=== PATIENT | female | born 1950 | race Caucasian/White ===

== ENCOUNTER → 2016-08-03 | Outpatient (CLI) | payer OTHER ==
[~2016-08-03] MED LIST: ALPR0.5T3 PO; ATOR80TA PO; BRIM0.1S OPL; CLOP1TAB5 PO; DOCU100C31 PO; FEXO1TAB49 PO; LATA0.5S OPL; LEVO75TA PO; LOSA50TA6 PO; NITR0.4S UT; NSNN50 NAE; POLY335019 PO; TRAZ1TAB16 PO; ZNTT/150 PO
--- NOTE | 2016-08-03 11:39 | DIAGNOSTIC IMAGING REPORT ---
CT SCAN OF THE PARANASAL SINUSES CLINICAL HISTORY: Chronic sinusitis. Headache. Facial pain. COMPARISON STUDY: CT of the brain dated 03/27/2014. TECHNIQUE: High-resolution CT scan of the paranasal sinuses is performed. Images are reviewed in the axial, sagittal, and coronal planes. IV contrast was not administered for this examination. The examination is performed utilizing the fusion protocol. CT DOSE: 584.55 mGy.cm FINDINGS: Maxillary antra: Clear bilaterally. Anterior ethmoid sinuses: Clear. Posterior ethmoid sinuses: Clear. Sphenoid sinuses: Clear. Frontal sinuses: There is trace mucosal thickening seen on the left. Clear in the right. Ostiomeatal complexes: Patent bilaterally. Frontoethmoidal and sphenoethmoidal recesses: Patent bilaterally. Carotid arteries: The carotid arteries are covered and without septal attachments. Ethmoid roofs: There is asymmetric elevation of the right ethmoid roof as compared to left. Nasal turbinates: Normal in appearance. Nasal septum: There is significant rightward deviation of the bony nasal septum with a large spur. Optic nerves: Covered. Orbits: The bony orbits are intact. Orbital contents are normal in appearance. Calvarium: The skeletal structures are osteopenic. The imaged calvarium is normal in appearance. Mastoid air cells: Well pneumatized. Brain parenchyma: Partially visualized brain parenchyma is within normal limits. IMPRESSION: No significant paranasal sinus disease. See above. Electronically signed by: Yohan Salcedo M.D. 08/03/2016 11:37 AM Dictated Date/Time: 08/03/2016 11:34 AM
== END | disposition home or self-care (01) ==
LOC: C.CTS 11:02
PROVIDERS: ATTEND Surgery
DX: J32.9 Chronic sinusitis, unspecified (principal)

== ENCOUNTER → 2017-06-22 | Outpatient (CLI) | payer OTHER ==
[~2017-06-22] MED LIST changes: +TRAZ-119 PO; -TRAZ1TAB16 PO
[2017-06-22 12:27] LABS: URINE APPEARANCE CLEAR (CLEAR); URINE BILIRUBIN NEG (NEG); URINE COLOR YELLOW; URINE EPITHELIAL CELL AUTO 20-30 /lpf (0-5); URINE NITRITE NEG (NEG); URINE PH 6.5 (4.5-7.5); URINE SPECIFIC GRAVITY 1.021 (1.000-1.030); UROBILINOGEN NEG (NEG)
[2017-06-22 12:33] LABS: MANUAL MICROSCOPIC REQUIRED? NO; REVIEW REQ? NO
== END | disposition home or self-care (01) ==
LOC: C.LABSPEC 11:57
PROVIDERS: ATTEND Physician Assistant
DX: R30.0 Dysuria (principal)

== ENCOUNTER → 2017-06-26 | Outpatient (CLI) | payer OTHER ==
--- NOTE | 2017-06-26 11:27 | DIAGNOSTIC IMAGING REPORT ---
R SHOULDER MIN 2 VIEWS ROUTINE CLINICAL HISTORY: Right shoulder pain. COMPARISON: None FINDINGS: Alignment of the right shoulder is anatomic. No fracture or suspicious osseous lesion is present. There is mild arthritis of the right glenohumeral joint with bony irregularity along the inferior aspect of the glenoid. There is mild to moderate right acromioclavicular joint osteoarthritis. IMPRESSION: 1. No acute fracture. 2. 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 Cortical irregularity of the inferior glenoid could be related to osteoarthritis or a previous anterior shoulder dislocation with bony Bank[place]. Electronically signed by: Jaskaran Buitrago M.D. 06/26/2017 11:26 AM Dictated Date/Time: 06/26/2017 11:24 AM
--- NOTE | 2017-06-26 11:29 | DIAGNOSTIC IMAGING REPORT ---
L-SPINE MIN 4 VIEWS ROUTINE HISTORY: 67 years-old Female BACK PAIN WITH SCIATICA acute lumbar back pain with sciatica COMPARISON: CT abdomen and pelvis 11/17/2012 TECHNIQUE: 5 views of the lumbar spine FINDINGS: Aortobiiliac stent graft is noted. There is mild convex right curvature of the lumbar spine. No acute fracture or subluxation identified. There is moderate intervertebral disc space narrowing at L5-S1. Mild multilevel endplate spurring is noted. There is moderate facet arthrosis at L4-L5 and L5-S1. IMPRESSION: 1. No acute fracture or subluxation. 2. Degenerative changes of the lumbar spine including moderate facet arthrosis at L4-L5 and L5-S1 with moderate intervertebral disc space narrowing at L5-S1. The above report was generated using voice recognition software. It may contain grammatical, syntax or spelling errors. Electronically signed by: Jose Molina M.D. 06/26/2017 11:28 AM Dictated Date/Time: 06/26/2017 11:26 AM
== END | disposition home or self-care (01) ==
LOC: C.RAD1850 10:51
PROVIDERS: ATTEND Internal Medicine Rheumatology
DX: M25.511 Pain in right shoulder (principal); M54.30 Sciatica, unspecified side; R76.8 Other specified abnormal immunological findings in serum; M25.551 Pain in right hip; R68.2 Dry mouth, unspecified; M35.9 Systemic involvement of connective tissue, unspecified; M47.816 Spondylosis without myelopathy or radiculopathy, lumbar region; M47.817 Spondylosis without myelopathy or radiculopathy, lumbosacral region; M51.27 Other intervertebral disc displacement, lumbosacral region; M19.011 Primary osteoarthritis, right shoulder

== ENCOUNTER → 2017-10-30 | Outpatient (CLI) | payer OTHER ==
[~2017-10-30] MED LIST changes: +RANI150T85 PO; -ZNTT/150 PO
[2017-10-30 16:49] LABS: BASO % 0.6 %; BASO ABS # 0.05 K/uL (0-0.2); EOS % 1.9 %; EOS ABS # 0.15 K/uL (0-0.5); IG# 0.01 K/uL (0.00-0.02); LYMPH % 22.2 %; LYMPH ABS # 1.71 K/uL (1.2-3.4); MEAN CORPUSCULAR HEMOGLOBIN 29.7 pg (25-34); MEAN CORPUSCULAR HGB CONC 33.3 g/dl (32-36); MEAN PLATELET VOLUME 11.3 fL (7.4-10.4); MONO % 6.9 %; MONO ABS # 0.53 K/uL (0.11-0.59); NEUT % 68.3 %; NEUT ABS # 5.25 K/uL (1.4-6.5); PLATELET COUNT 246 K/uL (130-400); RED CELL DISTRIBUTION WIDTH CV 13.2 % (11.5-14.5); RED CELL DISTRIBUTION WIDTH SD 43.2 fL (36.4-46.3)
[2017-10-30 17:18] LABS: ALBUMIN 4.1 gm/dl (3.4-5.0); ALT/SGPT 18 U/L (12-78); BLOOD UREA NITROGEN 14 mg/dl (7-18); CALCIUM 9.4 mg/dl (8.5-10.1); CARBON DIOXIDE 26 mmol/L (21-32); CHOLESTEROL 172 mg/dl (0-200); CREATININE 0.92 mg/dl (0.60-1.20); GLUCOSE 82 mg/dl (70-99); POTASSIUM 3.9 mmol/L (3.5-5.1); SODIUM 139 mmol/L (136-145)
[2017-10-30 17:29] LABS: ALKALINE PHOSPHATASE 52 U/L (45-117); AST/SGOT 13 U/L (15-37); LDL CHOLESTEROL CALCULATED 94 mg/dl; TOTAL PROTEIN 7.5 gm/dl (6.4-8.2)
== END | disposition home or self-care (01) ==
LOC: C.LABPBG 14:50
PROVIDERS: ATTEND Internal Medicine
DX: I73.9 Peripheral vascular disease, unspecified (principal); I25.10 Atherosclerotic heart disease of native coronary artery without angina pectoris; Z78.9 Other specified health status; E78.5 Hyperlipidemia, unspecified; Z11.59 Encounter for screening for other viral diseases; I10 Essential (primary) hypertension

== ENCOUNTER 2019-03-23 12:58 | Observation (INO) ==
[2019-03-23] MEDS ORDERED: NITROGLYCERIN SL 0.4 MG/TAB TAB SL PRN ×3 (13:23→16:04)
[2019-03-23] MEDS ORDERED: ONDANSETRON INJ 2 MG/ML 2 ML VIAL IV STA (13:23)
[2019-03-23 13:32] LABS: Basophils # (auto) 0.04 K/uL (0-0.2); Basophils % (auto) 0.7 %; Eosinophils # (auto) 0.13 K/uL (0-0.5); Eosinophils % (auto) 2.4 %; Hematocrit (blood only) 40.1 % (37-47); Hemoglobin 13.6 g/dL (12.0-16.0); Immature Granulocytes # (auto) 0.01 K/uL (0.00-0.02); Immature Granulocytes % (auto) 0.2 %; Lymphocytes # (auto) 1.23 K/uL (1.2-3.4); Lymphocytes % (auto) 22.8 %; Mean Corpuscular Hemoglobin 29.9 pg (25-34); Mean Corpuscular Hgb Conc 33.9 g/dL (32-36); Mean Corpuscular Volume 88.1 fL (80-100); Mean Platelet Volume 10.8 fL (7.4-10.4); Monocytes # (auto) 0.44 K/uL (0.11-0.59); Monocytes % (auto) 8.1 %; Neutrophils # (auto) 3.55 K/uL (1.4-6.5); Neutrophils % (auto) 65.8 %; Platelet Count 182 K/uL (130-400); RDW Coefficient of Variation 13.1 % (11.5-14.5); RDW Standard Deviation 41.9 fL (36.4-46.3); Red Blood Count 4.55 M/uL (4.2-5.4)
[2019-03-23 13:40] LABS: Alanine Aminotransferase 22 U/L (12-78); Albumin Level 3.5 gm/dl (3.4-5.0); Aspartate Aminotransferase 17 U/L (15-37); BUN Creatinine Ratio 16.4 (10-20); Blood Urea Nitrogen 15 mg/dl (7-18); Calcium 8.7 mg/dl (8.5-10.1); Carbon Dioxide 25 mmol/L (21-32); Chloride 109 mmol/L (98-107); Creatinine Clr Calc Pharmacy 53.4 ml/min; Est GFR (African American) 74.1; Est GFR (Non-African American) 63.9; Glucose 128 mg/dl (70-99); Lipase 171 U/L (73-393); Potassium 4.1 mmol/L (3.5-5.1); Sodium 140 mmol/L (136-145)
[2019-03-23 13:45] LABS: Albumin Globulin Ratio 1.1 (0.9-2); Alkaline Phosphatase 73 U/L (45-117); Bilirubin,Total 0.6 mg/dl (0.2-1); Globulin 3.2 gm/dl (2.5-4.0); Total Protein 6.7 gm/dl (6.4-8.2); Troponin I < 0.015 ng/ml (0-0.045)
--- NOTE | 2019-03-23 13:52 | XRay Report ---
XR chest 1V portable CLINICAL HISTORY: 68 years-old Female presenting with Chest Pain. TECHNIQUE: Portable upright AP view of the chest was obtained. COMPARISON: 03/01/2015. FINDINGS: Atherosclerosis of the aortic arch. Cardiac silhouette mildly enlarged. Minimal basilar opacities. No pleural effusion or pneumothorax. Osseous structures normal. Upper abdomen normal. IMPRESSION: 1. Minimal basilar opacities likely atelectasis or scarring. 2. Mild cardiomegaly. Electronically signed by: Christiano Daniels M.D. 03/23/2019 1:51 PM
--- NOTE | 2019-03-23 15:17 | History & Physical Report ---
Date of Service March 23, 2019 Assessment & Plan (1) Atypical chest pain: Admit to PCU on telemetry Vital signs every 4 hours Troponins every 6 hours with EKG CBC CMP TSH BNP lipid panel A1c pending Patient took aspirin 81, give additional 243mg chewable Echocardiogram Consult cardiology for symptomatic bradycardia DVT prophylaxis Lovenox 40 subacute daily Full code Present on Admission?: Yes (2) Bradycardia: As the above (3) Hypertension: Stable, continue coenzyme Q 200 mg p.o. daily, losartan 50 mg p.o. daily nitroglycerin 0.4 mg sublingual. Present on Admission?: Yes (4) Hyperlipidemia: Continue pravastatin 20 mg nightly, ezetimibe 10 mg p.o. daily Fasting lipid panel pending Present on Admission?: Yes (5) Abdominal aneurysm: Stable , has stent ,continue monitoring Present on Admission?: Yes (6) Hypothyroidism: TSH pending Continue levothyroxine 75 MCG's tablet Present on Admission?: Yes (7) Nicotine dependence: Continue nicotine 2 mg buccal lozenges Present on Admission?: Yes (8) UTI (urinary tract infection): Start Cipro 500 mg p.o., if ucx negative stop abx. Present on Admission?: Yes History of Present Illness Chief Complaint: Chest pain Primary Care Provider: Christiano Teresa MD Patient is a 68 years old female with past medical history of hypertension, hyperlipidemia, clipped abdominal aneurysm, sinus bradycardia and syncope who came to the emergency room with complaint of a chest pain that started this morning and lasted more than 30 minutes. Patient tried to relieve the pain with food but did not help, nitroglycerin helps a little bit, but pain continued to be all over patient chest mostly in epigastric area and on occasion was spreading to her both arms and jaw. In the ER patient was also given nitroglyc antonio. Patient denies fever chills abdominal pain shortness of breath hematuria hemoptysis or melena, syncope or near syncope. Patient reports burning with urination. Labs are reviewed: White blood cell 5.4 hemoglobin 13.6, hematocrit 40.1 platelets 182, sodium 140 potassium 4.1, chloride 109, carbon dioxide 25, BUN 15 creatinine 0.91 GFR 63.9, AST 17 ALT 22 random glucose 128, albumin 3.5, troponin 0 0.015 lipase 171 TSH pending, lipid panel pending, BNP pending. Urine trace hemoglobin, leukocyte esterase small, 1-5 white blood cells; chest x-rays: Mild cardiomegaly, atherosclerosis of the aortic arch, cardiac silhouette mildly enlarged, minimal bibasilar opacities, no pleural effusion or pneumothorax. EKG: Significant for sinus bradycardia with premature atrial complexes ventricular rate of 49 bpm,QRS 96; decision was made to admit patient to the PCU telemetry on observation for symptomatic bradycardia and to rule out coronary artery syndrome Allergies Allergy/AdvReac Type Severity Reaction Status Date / Time naproxen Allergy Severe SWELLING Verified 03/23/19 13:44 IN LIPS AND EYES Penicillins Allergy Severe FACIAL Verified 03/23/19 13:44 EDEMA clindamycin Allergy Intermediate hives Verified 03/23/19 13:44 Sulfa (Sulfonamide Allergy Intermediate HIVES Verified 03/23/19 13:44 Antibiotics) quinine Allergy Unknown HIVES Verified 03/23/19 13:44 nickel Allergy Rash Verified 03/23/19 15:36 Naprosyn TABS Allergy Unknown Unknown Uncoded 03/23/19 13:44 Quinine Derivatives Allergy Unknown Unknown Uncoded 03/23/19 13:44 Atorvastatin Calcium TABS AdvReac myalgia Uncoded 03/23/19 13:44 Lisinopril TABS AdvReac cough Uncoded 03/23/19 13:44 pravastatin AdvReac fatigue Uncoded 03/23/19 13:44 rosuvastatin AdvReac headache Uncoded 03/23/19 13:44 simvastatin AdvReac myaglia Uncoded 03/23/19 13:44 Home Medications Home Medications Medication Instructions Recorded Confirmed Type trazodone 50 mg tablet 50 mg PO DAILY #90 tab 01/07/19 03/23/19 Rx ezetimibe 10 mg tablet 10 mg PO DAILY #90 tab 02/04/19 03/23/19 Rx alprazolam 0.5 mg tablet 0.5 mg PO BID PRN #60 tab 02/12/19 03/23/19 Rx pravastatin 20 mg tablet 20 mg PO .COMPLEX #90 tab 02/22/19 03/23/19 Rx escitalopram 10 mg tablet 10 mg PO DAILY #30 tab 02/25/19 03/23/19 Rx aspirin 81 mg tablet 81 mg PO DAILY tab 03/18/19 03/23/19 History coenzyme Q10 100 mg capsule 200 mg PO DAILY cap 03/18/19 03/23/19 History latanoprost 0.005 % eye drops 1 drops OPB QPM ml 03/18/19 03/23/19 History levothyroxine 75 mcg tablet 75 mcg PO DAILY #90 tab 03/18/19 03/23/19 Rx losartan 50 mg tablet 50 mg PO DAILY #90 tab 03/18/19 03/23/19 History mometasone 50 mcg/actuation nasal 2 sprays INTRANASAL DAILY PRN #1 gm 03/18/19 03/23/19 History spray nicotine (polacrilex) 2 mg buccal 2 mg PO Q1H PRN ea 03/18/19 03/23/19 History lozenge nitroglycerin 0.4 mg sublingual 0.4 mg SL Q5M PRN #25 tab 03/18/19 03/23/19 History tablet ranitidine 150 mg tablet 150 mg PO BID tab 03/18/19 03/23/19 History Past Med/Surg History Medical History H/O: hysterectomy partial Surgical History H/O colonoscopy 10/25/08 repeat in 10 yrs H/O esophagogastroduodenoscopy 03/10/15 /[facility] normal bx 11/04/08 12/04/08 EUS lipoma 10/04/11 bx from esophagus shower mild inflammation most consistent with GERD H/O hand surgery right hand giant cell tumor removed 1996 History of AAA (abdominal aortic aneurysm) repair endograft repair 2008 Dr. Trujillo AAA repair with [place] endograft S/P cataract surgery S/P excision of lipoma excision of lipoma left posterior neck Dr. Cabello 11/02/[address] Simon 1997 second one from back 1998 S/P rotator cuff repair [address] Mcdonald Family History Father Anxiety Coronary heart disease Heart disease Myocardial infarction Sister Anxiety Alcohol abuse Hypertension Cancer Brother Hx of CABG Coronary arteriosclerosis Heart disease Hearing loss Hypertension Lymphoma Mother Hearing loss Gallbladder disease Hypertension Social History Preferred Language: [place] Communication Ability: Effective Guide Dog Trainer Required: No Beliefs That Will Affect Care: None marital status: Current Living Situation: Spouse current occupational status: retired Other Information That Helps Us Care for You: No Feels Safe at Home: Yes Safety Concerns: Feels Safe At This Time Smoking Status: Former smoker Do You Dip or Chew Tobacco: No ; Smoking End Date: 2009 ; Second Hand Exposure: No ; Tobacco Cessation Education Requested by Patient: No Hx Alcohol Use: No Hx Substance Use: No Childhood Exposure to Second-Hand Smoke: No Dental Care, Regularly: Yes Physical Activity Frequency: 1-2 Times per Week Review of Systems Review of Systems: All systems reviewed & are unremarkable except as noted in HPI & below Physical Exam Constitutional: WD/WN, vitals as above well developed Eyes: PERRL, conjunctivae normal, anicteric sclerae ENMT: external ear and nose normal, oropharynx normal Neck: trachea midline, no thyromegaly Respiratory: normal respiratory effort, lungs clear to auscultation Cardiovascular: Rate/Rhythm: + bradycardic Heart Sounds: normal S1 and normal S2 Gastrointestinal (Abdomen): normal bowel sounds, soft, nontender, no hepatosplenomegaly Musculoskeletal: no cyanosis or clubbing, extremities motor strength 5/5 Skin: no rashes, warm and dry Neurologic: patellar DTR's 2+ bilat, sensation intact Psychiatric: A+Ox3, euthymic affect Genitourinary: no vaginal lesions, no adnexal mass Lymphatic: no cervical or axillary lymphadenopathy Results & Data Vital Signs (Past 12 Hours) Vital Signs Temp Pulse Resp BP Pulse Ox 03/23/19 14:50 50 L 20 98 03/23/19 14:46 46 L 15 122/59 L 98 03/23/19 14:40 41 L 14 99 03/23/19 14:31 40 L 20 127/65 98 03/23/19 14:30 39 L 16 97 03/23/19 14:21 40 L 15 114/55 L 98 03/23/19 14:15 39 L 18 98 03/23/19 14:14 42 L 96 03/23/19 14:12 42 L 13 114/68 97 03/23/19 14:00 48 L 15 93/54 L 95 03/23/19 13:45 53 L 20 93 03/23/19 13:30 52 L 16 117/57 L 96 03/23/19 13:14 55 L 14 96 03/23/19 13:11 52 L 15 138/53 L 95 03/23/19 12:59 36.7 C 73 16 119/75 96 Code Status & VTE Plan Code Status Full code VTE Prophylaxis Plan VTE Prophylaxis will be ordered: Yes PG Care Time/CCT Total # of Minutes Spent Total Time Spent with Patient: Total time spent is greater than 50% in coordination of care (as documented) at patient's floor/unit and/or counseling patient:
[2019-03-23] MEDS ORDERED: POLYETHYLENE (MIRALAX) 17 GM PACK PO PRN (16:04)
[2019-03-23] MEDS ORDERED: ASPIRIN 81 MG CHEW PO STA (16:04)
[2019-03-23] MEDS ORDERED: FLUTICASONE PROPIONATE NA SPR 16 GM BTL NAE PRN (16:04)
[2019-03-23] MEDS ORDERED: MAGNESIUM HYDROXIDE SUSP 30 ML UDC PO PRN (16:04)
[2019-03-23] MEDS ORDERED: NICOTINE POLACRILEX 2 MG GUM MT PRN (16:04)
[2019-03-23] MEDS ORDERED: ACETAMINOPHEN 325 MG TAB PO PRN (16:04)
[2019-03-23] MEDS ORDERED: ONDANSETRON INJ 2 MG/ML 2 ML VIAL IV PRN (16:04)
[2019-03-23] MEDS ORDERED: ZOLPIDEM TARTRATE 5 MG TAB PO PRN (16:04)
[2019-03-23] MEDS ORDERED: FAMOTIDINE 20MG/5ML IV PUSH IV STA (16:20)
[2019-03-23 16:57] LABS: NT Pro B Type Natriuretic Pept 90 pg/ml (0-900); Troponin I < 0.015 ng/ml (0-0.045)
[2019-03-23] MEDS ORDERED: FAMOTIDINE 20 MG in SYRINGE 3 ML IV SCH (17:00)
[2019-03-23] MEDS: ENOXAPARIN INJ 40 MG/0.4 ML SYR SQ SCH (17:05)
--- NOTE | 2019-03-23 19:36 | Emergency Department Note ---
Entered by Adriane Khan acting as a scribe for History of Present Illness General Chief complaint: Chest Pain Stated complaint: CHEST PAIN Time Seen by Provider: 03/23/19 13:21 Source: patient History of Present Illness Onset (ago): day(s) (this morning) Location: chest Radiation: extremity (bilateral upper) Pain Consistency: + other (episode) Current Pain Intensity: 3 Quality: + burning and + other (pressure) Relieved By: + other (Nitroglycerin); not by eating (water) and not by medication (Zantac) Exacerbated By: not by movement (exertion) Associated symptoms: + denies other symptoms (abnormal bowel movements, urinary symptoms), + nausea/vomiting (Positive nausea. Negative vomiting. ), + weakness and + other (hot flash); no cough and no fever/chills (fever) The patient is a 68 year old female w/ PMHx HLD, AAA, GERD, and FL who presents to the ED w/ CC of an episode of left sided chest pain starting this morning. The patient states that this morning she got up and was drinking her coffee when she started feeling hot like a hot flash. She states that then she felt weak in her arms. She reports that suddenly she started having a burning feeling in the center of her chest. She states that she thought it was reflux so she took a Zantac, but it offered no relief. The patient states that she drank water, but it offered no relief. She states that the pain then radiated to her bilateral arms. She reports that she then took a Nitroglycerin and it offered a little relief. She states that her pain went from a 5/10 to a 3/10 in severity. She reports that this is similar to her past [place]. She notes that it now feels like a pressure. The patient complains of nausea. The patient denies abnormal bowel movements, urinary symptoms, fever, vomiting, cough, a history of blood clots, recent surgeries, recent travel, and chest pain worse with exertion. Home Medications Home Medications Medication Instructions Recorded Confirmed Type trazodone 50 mg tablet 50 mg PO DAILY #90 tab 01/07/19 03/23/19 Rx ezetimibe 10 mg tablet 10 mg PO DAILY #90 tab 02/04/19 03/23/19 Rx alprazolam 0.5 mg tablet 0.5 mg PO BID PRN #60 tab 02/12/19 03/23/19 Rx pravastatin 20 mg tablet 20 mg PO .COMPLEX #90 tab 02/22/19 03/23/19 Rx escitalopram 10 mg tablet 10 mg PO DAILY #30 tab 02/25/19 03/23/19 Rx aspirin 81 mg tablet 81 mg PO DAILY tab 03/18/19 03/23/19 History coenzyme Q10 100 mg capsule 200 mg PO DAILY cap 03/18/19 03/23/19 History latanoprost 0.005 % eye drops 1 drops OPB QPM ml 03/18/19 03/23/19 History levothyroxine 75 mcg tablet 75 mcg PO DAILY #90 tab 03/18/19 03/23/19 Rx losartan 50 mg tablet 50 mg PO DAILY #90 tab 03/18/19 03/23/19 History mometasone 50 mcg/actuation nasal 2 sprays INTRANASAL DAILY PRN #1 gm 03/18/19 03/23/19 History spray nicotine (polacrilex) 2 mg buccal 2 mg PO Q1H PRN ea 03/18/19 03/23/19 History lozenge nitroglycerin 0.4 mg sublingual 0.4 mg SL Q5M PRN #25 tab 03/18/19 03/23/19 History tablet ranitidine 150 mg tablet 150 mg PO BID tab 03/18/19 03/23/19 History Allergies Allergy/AdvReac Type Severity Reaction Status Date / Time naproxen Allergy Severe SWELLING Verified 03/23/19 13:44 IN LIPS AND EYES Penicillins Allergy Severe FACIAL Verified 03/23/19 13:44 EDEMA clindamycin Allergy Intermediate hives Verified 03/23/19 13:44 Sulfa (Sulfonamide Allergy Intermediate HIVES Verified 03/23/19 13:44 Antibiotics) quinine Allergy Unknown HIVES Verified 03/23/19 13:44 nickel Allergy Rash Verified 03/23/19 15:36 Naprosyn TABS Allergy Unknown Unknown Uncoded 03/23/19 13:44 Quinine Derivatives Allergy Unknown Unknown Uncoded 03/23/19 13:44 Atorvastatin Calcium TABS AdvReac myalgia Uncoded 03/23/19 13:44 Lisinopril TABS AdvReac cough Uncoded 03/23/19 13:44 pravastatin AdvReac fatigue Uncoded 03/23/19 13:44 rosuvastatin AdvReac headache Uncoded 03/23/19 13:44 simvastatin AdvReac myaglia Uncoded 03/23/19 13:44 Past Med/Surg History Medical History H/O: hysterectomy partial Surgical History H/O colonoscopy 10/25/08 repeat in 10 yrs H/O esophagogastroduodenoscopy 03/10/15 /[facility] normal bx 11/04/08 12/04/08 EUS lipoma 10/04/11 bx from esophagus shower mild inflammation most consistent with GERD H/O hand surgery right hand giant cell tumor removed 1996 History of AAA (abdominal aortic aneurysm) repair endograft repair 2008 Dr. Trujillo AAA repair with [place] endograft S/P cataract surgery S/P excision of lipoma excision of lipoma left posterior neck Dr. Cabello 11/02/[address] Simon 1997 second one from back 1998 S/P rotator cuff repair [address] 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: No Beliefs That Will Affect Care: None marital status: Current Living Situation: Spouse current occupational status: retired Other Information That Helps Us Care for You: No Feels Safe at Home: Yes Safety Concerns: Feels Safe At This Time Smoking Status: Former smoker Do You Dip or Chew Tobacco: No ; Smoking End Date: 2009 ; Second Hand Exposure: No ; Tobacco Cessation Education Requested by Patient: No Hx Alcohol Use: No Hx Substance Use: No Childhood Exposure to Second-Hand Smoke: No Dental Care, Regularly: Yes Physical Activity Frequency: 1-2 Times per Week Review of Systems See HPI for pertinent positives & negatives. and A total of 10 systems reviewed and were otherwise negative Physical Exam Vital Signs Vital Signs - 24 hr 03/23/19 12:59 03/23/19 13:11 03/23/19 13:14 Temperature 36.7 C Temperature Source Oral Sepsis Recent Fever Within 48 Hours No Sepsis New/Unexplained Change in Mental Status No Sepsis Action Taken by Nursing No Action Required Pulse Oximetry Post Tiitration Pulse Rate 73 52 L 55 L Pulse Rate from SpO2 Sensor 55 L 54 L Respiratory Rate 16 15 14 Respiratory Effort / Characteristics Non-Labored Respiratory Depth Normal Blood Pressure 119/75 138/53 L Blood Pressure Mean 89 81 Pulse Oximetry 96 95 96 Oxygen Delivery Method Room Air Oxygen Flow Rate 03/23/19 13:30 03/23/19 13:45 03/23/19 13:46 Temperature Temperature Source Sepsis Recent Fever Within 48 Hours Sepsis New/Unexplained Change in Mental Status Sepsis Action Taken by Nursing Pulse Oximetry Post Tiitration 92 Pulse Rate 52 L 53 L Pulse Rate from SpO2 Sensor 52 L 66 Respiratory Rate 16 20 Respiratory Effort / Characteristics Respiratory Depth Blood Pressure 117/57 L Blood Pressure Mean 77 Pulse Oximetry 96 93 Oxygen Delivery Method Room Air Oxygen Flow Rate 03/23/19 14:00 03/23/19 14:12 03/23/19 14:14 Temperature Temperature Source Sepsis Recent Fever Within 48 Hours Sepsis New/Unexplained Change in Mental Status Sepsis Action Taken by Nursing Pulse Oximetry Post Tiitration Pulse Rate 48 L 42 L 42 L Pulse Rate from SpO2 Sensor 48 L 42 L Respiratory Rate 15 13 Respiratory Effort / Characteristics Respiratory Depth Blood Pressure 93/54 L 114/68 Blood Pressure Mean 67 83 Pulse Oximetry 95 97 96 Oxygen Delivery Method Nasal Cannula Oxygen Flow Rate 2 03/23/19 14:15 03/23/19 14:21 03/23/19 14:30 Temperature Temperature Source Sepsis Recent Fever Within 48 Hours Sepsis New/Unexplained Change in Mental Status Sepsis Action Taken by Nursing Pulse Oximetry Post Tiitration Pulse Rate 39 L 40 L 39 L Pulse Rate from SpO2 Sensor 41 L 40 L 44 L Respiratory Rate 18 15 16 Respiratory Effort / Characteristics Respiratory Depth Blood Pressure 114/55 L Blood Pressure Mean 74 Pulse Oximetry 98 98 97 Oxygen Delivery Method Oxygen Flow Rate 03/23/19 14:31 03/23/19 14:40 03/23/19 14:46 Temperature Temperature Source Sepsis Recent Fever Within 48 Hours Sepsis New/Unexplained Change in Mental Status Sepsis Action Taken by Nursing Pulse Oximetry Post Tiitration Pulse Rate 40 L 41 L 46 L Pulse Rate from SpO2 Sensor 42 L 42 L 41 L Respiratory Rate 20 14 15 Respiratory Effort / Characteristics Respiratory Depth Blood Pressure 127/65 122/59 L Blood Pressure Mean 85 80 Pulse Oximetry 98 99 98 Oxygen Delivery Method Oxygen Flow Rate 03/23/19 14:50 03/23/19 15:00 Temperature Temperature Source Sepsis Recent Fever Within 48 Hours Sepsis New/Unexplained Change in Mental Status Sepsis Action Taken by Nursing Pulse Oximetry Post Tiitration Pulse Rate 50 L 41 L Pulse Rate from SpO2 Sensor 47 L 45 L Respiratory Rate 20 12 Respiratory Effort / Characteristics Respiratory Depth Blood Pressure 149/71 H Blood Pressure Mean 97 Pulse Oximetry 98 98 Oxygen Delivery Method Oxygen Flow Rate GENERAL: Well appearing, well nourished, NAD, non-toxic. EYE EXAM: Normal conjunctiva. PERRL, no anisocoria and EOM's grossly intact w/o pain. OROPHARYNX: Moist mucous membranes. Grossly normal dentition. NECK: Supple, no nuchal rigidity, no adenopathy, non-tender. No signs of meningi smus. LUNGS: Clear to auscultation. Normal chest wall mechanics. HEART: NSR, no MRG. ABDOMEN: Abdomen soft, non-tender, normo-active bowel sounds, no masses, no rebound or guarding. BACK: No CVA TTP. SKIN: No rashes and no bruising. UPPER EXTREMITIES: Upper extremities are grossly normal. LOWER EXTREMITIES: No pitting edema. No calf pain. Negative Anthony's sign. NEURO EXAM: A&O x3, cranial nerves II-XII grossly intact, normal speech, moves all 4 extremities on command w/o issue. Course 1329: Past medical records reviewed. The patient was evaluated in room B8. A complete history and physical exam was performed. 1426: I reevaluated the patient and her pain improved with the Nitroglycerin. We placed the pads on her as she has been bradycardic. I discussed her test results and the treatment plan with her. She verbally agrees and understands. 1434: I discussed the patient's case with Dr. Avilez Hospitalist. She will evaluate the patient for further management. Consultations Consultation #1: I discussed the patient's case with Dr. Avilez Hospital[facility]. She will evaluate the patient for further management. Time: 14:34 Administered Medications Enoxaparin Sodium (Lovenox) 40 mg SQ Q24H ESTELA Stop: 04/22/19 16:59 Last Admin: 03/23/19 17:05 Dose: 40 mg Documented by: [id number] Famotidine 20 mg/ Syringe 5 mls @ 2.5 mls/min IV DAILY ESTELA Stop: 03/23/19 23:59 Last Admin: 03/23/19 17:05 Dose: 2.5 mls/min Documented by: [id number] Discontinued Medications Aspirin (Aspirin Chew) 162 mg PO NOW STA Stop: 03/23/19 16:05 Last Admin: 03/23/19 17:06 Dose: 162 mg Documented by: [id number] Nitroglycerin (Nitrostat) 0.4 mg SL UD PRN PRN Reason: Chest Pain Stop: 04/22/19 13:22 Last Admin: 03/23/19 13:41 Dose: 0.4 mg Documented by: [id number] Ondansetron HCl (Zofran) 4 mg IV NOW STA Stop: 03/23/19 13:24 Last Admin: 03/23/19 13:41 Dose: 4 mg Documented by: [id number] Medical Decision Making Differential Diagnosis Differential diagnoses includes but is not limited to acute coronary syndrome, myocardial infarction, pericarditis, pulmonary embolus, aortic dissection, pneumonia, pneumothorax, musculoskeletal, shingles, esophageal. Medical Records Attestation: I reviewed the patient's medical records. Home Medications Current Medication List: was personally reviewed by me Laboratory Data Attestation: I reviewed the patient's lab results. Result diagrams: 03/23/19 13:12 03/23/19 13:12 Lab Results 03/23/19 03/23/19 Range/Units 13:12 13:12 WBC 5.40 (4.8-10.8) K/uL RBC 4.55 (4.2-5.4) M/uL Hgb 13.6 (12.0-16.0) g/dL Hct 40.1 (37-47) % MCV 88.1 (80-100) fL MCH 29.9 (25-34) pg MCHC 33.9 (32-36) g/dL RDW Std Deviation 41.9 (36.4-46.3) fL RDW Coeff of Kriss 13.1 (11.5-14.5) % Plt Count 182 (130-400) K/uL MPV 10.8 H (7.4-10.4) fL Immature Gran % (Auto) 0.2 % Neut % (Auto) 65.8 % Lymph % (Auto) 22.8 % Owsley % (Auto) 8.1 % Eos % (Auto) 2.4 % Baso % (Auto) 0.7 % Immature Gran # (Auto) 0.01 (0.00-0.02) K/uL Neut # (Auto) 3.55 (1.4-6.5) K/uL Lymph # (Auto) 1.23 (1.2-3.4) K/uL Owsley # (Auto) 0.44 (0.11-0.59) K/uL Eos # (Auto) 0.13 (0-0.5) K/uL Baso # (Auto) 0.04 (0-0.2) K/uL Sodium 140 (136-145) mmol/L Potassium 4.1 (3.5-5.1) mmol/L Chloride 109 H (98-107) mmol/L Carbon Dioxide 25 (21-32) mmol/L Anion Gap 6.0 (3-11) BUN 15 (7-18) mg/dl Creatinine 0.91 (0.6-1.2) mg/dl Est Cr Clr Drug Dosing 53.4 ml/min Est GFR ( Amer) 74.1 Est GFR (Non-Af Amer) 63.9 BUN/Creatinine Ratio 16.4 (10-20) Glucose 128 H (70-99) mg/dl Calcium 8.7 (8.5-10.1) mg/dl Total Bilirubin 0.6 (0.2-1) mg/dl AST 17 (15-37) U/L ALT 22 (12-78) U/L Alkaline Phosphatase 73 (45-117) U/L Troponin I < 0.015 (0-0.045) ng/ml Total Protein 6.7 (6.4-8.2) gm/dl Albumin 3.5 (3.4-5.0) gm/dl Globulin 3.2 (2.5-4.0) gm/dl Albumin/Globulin Ratio 1.1 (0.9-2) Lipase 171 (73-393) U/L Imaging Data Radiologist's Impression: Radiology results as stated below per my review and the radiologist's interpretation: XR chest 1V portable CLINICAL HISTORY: 68 years-old Female presenting with Chest Pain. TECHNIQUE: Portable upright AP view of the chest was obtained. COMPARISON: 03/01/2015. FINDINGS: Atherosclerosis of the aortic arch. Cardiac silhouette mildly enlarged. Minimal basilar opacities. No pleural effusion or pneumothorax. Osseous structures normal. Upper abdomen normal. IMPRESSION: 1. Minimal basilar opacities likely atelectasis or scarring. 2. Mild cardiomegaly. Electronically signed by: Christiano Daniels M.D. 03/23/2019 1:51 PM ECG Data Attestation: I personally reviewed and interpreted this ECG as follows: Indication: chest pain Rate (beats per minute): 49 Rhythm: sinus bradycardia Findings: + other (normal intervals, normal axis, T wave flattening in V5 and V6) and + T-wave inversion (lead 3 and aVF) Comparison ECG Date: from (10/07/2015) Change: the following changes noted (T wave flattening is new) Blood Pressure Blood Pressure Findings: Low blood pressure Blood Pressure Disposition: further management by hospitalist BLADE Narrative The patient is a 68 year old female w/ PMHx HLD, AAA, GERD, and FL who presents to the ED w/ CC of an episode of chest pain starting this morning. Patient was seen and evaluated bedside. The patient did have some chest pain which she did relate was left-sided sharp chest pressure radiating to the arm. She states that she thought initially was related to some nausea or reflux but also related that it does feel similar to prior [place]. It did improve with nitro at home. The patient's EKG just shows some bradycardia and some T wave flattening in the lateral leads. Patient does have old T wave inversions inferiorly. The patient did receive an additional nitro which improved her chest pain. Given the after mentioned the patient does have an elevated heart score was with EKG changes and chest pain that is concerning with improvement with nitro. Patient was admitted to the medicine service under observation.Pads were placed on the patient given her bradycardia. Impression & Plan Atypical chest pain, Bradycardia Discharge Plan Visit Data *Final* Discharge Date/Time: 03/23/19 15:28 Chief Complaint: Chest Pain Stated Complaint: CHEST PAIN ED Provider: Nghia Avery Discharge Problem: Atypical chest pain, Bradycardia Patient Disposition: Admitted As Inpatient Discharge Instructions Interventions: ED Discharge Assessment Last Done: 03/23/19 15:28 The scribe's documentation has been prepared under my direction and personally reviewed by me in its entirety. I confirm that the note above accurately reflects all work, treatment, procedures, and medical decision making performed by me.
[2019-03-23] MEDS: CIPROFLOXACIN 500 MG TAB PO SCH (20:14)
[2019-03-23] MEDS: ALPRAZolam 0.5 MG TABLET PO PRN (20:14)
[2019-03-23] MEDS: LATANOPROST 0.005% OP SOLN 2.5 ML BTL OPB SCH (20:15)
[2019-03-23] MEDS: BRIMONIDINE TARTRATE 0.2% 5ML OP SCH (22:05)
[2019-03-23] MEDS: PRAVASTATIN SOD 20 MG TAB PO SCH (22:39)
[2019-03-23] MEDS: ALUMINUM/MAGNESIUM SUSP 30 ML UDC PO PRN (22:44)
[2019-03-24 04:00] LABS: Basophils # (auto) 0.03 K/uL (0-0.2); Basophils % (auto) 0.6 %; Eosinophils # (auto) 0.16 K/uL (0-0.5); Eosinophils % (auto) 3.3 %; Hematocrit (blood only) 40.5 % (37-47); Hemoglobin 13.5 g/dL (12.0-16.0); Immature Granulocytes # (auto) 0.01 K/uL (0.00-0.02); Immature Granulocytes % (auto) 0.2 %; Lymphocytes # (auto) 1.62 K/uL (1.2-3.4); Lymphocytes % (auto) 33.5 %; Mean Corpuscular Hemoglobin 29.7 pg (25-34); Mean Corpuscular Hgb Conc 33.3 g/dL (32-36); Mean Platelet Volume 10.5 fL (7.4-10.4); Monocytes # (auto) 0.44 K/uL (0.11-0.59); Monocytes % (auto) 9.1 %; Neutrophils # (auto) 2.58 K/uL (1.4-6.5); Neutrophils % (auto) 53.3 %; Platelet Count 178 K/uL (130-400); RDW Coefficient of Variation 13.3 % (11.5-14.5); RDW Standard Deviation 42.8 fL (36.4-46.3); Red Blood Count 4.55 M/uL (4.2-5.4); White Blood Count 4.84 K/uL (4.8-10.8)
[2019-03-24 04:18] LABS: Alanine Aminotransferase 20 U/L (12-78); Albumin Level 3.3 gm/dl (3.4-5.0); Aspartate Aminotransferase 13 U/L (15-37); BUN Creatinine Ratio 17.4 (10-20); Blood Urea Nitrogen 18 mg/dl (7-18); Calcium 8.7 mg/dl (8.5-10.1); Carbon Dioxide 32 mmol/L (21-32); Chloride 109 mmol/L (98-107); Creatinine Clr Calc Pharmacy 46.8 ml/min; Est GFR (Non-African American) 54.4; Glucose 100 mg/dl (70-99); Potassium 4.4 mmol/L (3.5-5.1); Sodium 142 mmol/L (136-145)
[2019-03-24 04:23] LABS: Albumin Globulin Ratio 1.1 (0.9-2); Alkaline Phosphatase 67 U/L (45-117); Bilirubin,Total 0.4 mg/dl (0.2-1); Chol HDL Ratio 4; Cholesterol 145 mg/dl (0-200); Globulin 3.1 gm/dl (2.5-4.0); HDL Cholesterol 34 mg/dl; LDL Cholesterol Calculated 60 mg/dl; Total Protein 6.4 gm/dl (6.4-8.2); Triglycerides 255 mg/dl (0-150); Troponin I < 0.015 ng/ml (0-0.045); VLDL Cholesterol 51 mg/dl
[2019-03-24] MEDS: LEVOTHYROXINE SODIUM 75 MCG TABLET PO SCH (05:39)
[2019-03-24] MEDS: BRIMONIDINE TARTRATE 0.2% 5ML OP SCH ×2 (08:01→21:25)
[2019-03-24] MEDS: CIPROFLOXACIN 500 MG TAB PO SCH ×2 (08:02→21:26)
[2019-03-24] MEDS: ASPIRIN 81 MG CHEW PO SCH (08:02)
[2019-03-24] MEDS: EZETIMIBE 10 MG TABLET PO SCH (08:02)
[2019-03-24] MEDS: ESCITALOPRAM OXALATE 10 MG TAB PO SCH (08:02)
[2019-03-24] MEDS: LOSARTAN POTASSIUM 50 MG TAB PO SCH (08:02)
[2019-03-24] MEDS ORDERED: NON-FORMULARY MEDICATION (Coenzyme Q10 [Coq-10] 200 MG) PO SCH (09:00)
[2019-03-24] MEDS ORDERED: TRAZODONE HCL 50 MG TAB PO SCH ×2 (09:00→21:30)
[2019-03-24] MEDS ORDERED: FAMOTIDINE 20 MG in SYRINGE 3 ML IV SCH (09:00)
[2019-03-24] MEDS: ALUMINUM/MAGNESIUM SUSP 30 ML UDC PO PRN (13:57)
--- NOTE | 2019-03-24 15:55 | Cardiology Consultation ---
Date of Consultation March 24, 2019 Assessment & Plan (1) Chest pain: The patient's description of chest discomfort is atypical for angina pectoris. Fortunately, her troponin I levels are undetectable, and she has no acute EKG changes. No need for further cardiac testing at this time. 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 She is found have a totally obstructed right coronary with good distal collateral flow. Continue medical management. (3) Bradycardia: The patient demonstrates sinus bradycardia, however, this has been asymptomatic. Would continue to monitor. She may eventually require permanent pacing. (4) Hypertension: Adequate control on current medical regimen. (5) Hyperlipidemia: Continue pravastatin. History of Present Illness Attending Physician: Rashawn Root History of Present Illness Mrs. Polk is a 68-year-old female admitted yesterday with a chest pain syndrome. Discussed lesions were to assist in her management. Of note, patient typically follows with Dr. Tomlin in the outpatient setting. Patient was in her usual state of health until yesterday when she felt a hot flash. After that resolved, she began to note weakness in both of her arms. She then experienced nausea and an epigastric heartburn sensation. Her symptoms lasted approximately 30 minutes and she then proceeded to the emergency room for further care. Patient explains that she still notes the epigastric heartburn type sensation. She is vigorous on a daily basis caring for her home and property. She has not experienced any exertional angina pectoris or limiting dyspnea. She further denies syncope, presyncope, PND, orthopnea, palpitations, lower extremity edema, and claudication. The patient's cardiac history began in July 2009 when she was a late presentation for an inferior myocardial infarction. Cardiac catheterization revealed a totally obstructed right coronary artery with good distal collateral flow. No intervention was performed at that time. She did have an inferior wall motion abnormality but a normal ejection fraction of 50-55%. She has done well from a cardiac perspective since that time. She did have an abdominal aortic stent and renal artery stent performed in February 2009 at [facility]. Past medical and surgical history 1. Coronary artery disease-see above 2. Hypertension 3. Hypercholesterolemia 4. Peripheral vascular disease 5. AAA stent-February 2009 6. Renal artery stent-February 2009 7. GERD 8. Hiatal hernia 9. Hypothyroidism 10. History of hyperthyroidism, radioactive iodine treatment 12. Migraine headaches 13. Glaucoma 14. History of cervical carcinoma 15. Hysterectomy 16. 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 History of gastric ulcer 19. Interocular lens implant 20. Rotator cuff repair-2000 Social history approximately 4 months ago Retired No tobacco or alcohol. Family history Noncontributory Review of systems A 10 point review of systems was negative except for that described above. Allergies Allergy/AdvReac Type Severity Reaction Status Date / Time naproxen Allergy Severe SWELLING Verified 03/23/19 13:44 IN LIPS AND EYES Penicillins Allergy Severe FACIAL Verified 03/23/19 13:44 EDEMA clindamycin Allergy Intermediate hives Verified 03/23/19 13:44 Sulfa (Sulfonamide Allergy Intermediate HIVES Verified 03/23/19 13:44 Antibiotics) quinine Allergy Unknown HIVES Verified 03/23/19 13:44 nickel Allergy Rash Verified 03/23/19 15:36 lisinopril AdvReac Cough Verified 03/24/19 14:09 Spfvyvy-Rob-Aiv Reductase AdvReac Muscle Pain Verified 03/24/19 14:09 Inhibitor Home Medications Home Medications Medication Instructions Recorded Confirmed Type trazodone 50 mg tablet 50 mg PO DAILY #90 tab 01/07/19 03/23/19 Rx ezetimibe 10 mg tablet 10 mg PO DAILY #90 tab 02/04/19 03/23/19 Rx alprazolam 0.5 mg tablet 0.5 mg PO BID PRN #60 tab 02/12/19 03/23/19 Rx pravastatin 20 mg tablet 20 mg PO .COMPLEX #90 tab 02/22/19 03/23/19 Rx escitalopram 10 mg tablet 10 mg PO DAILY #30 tab 02/25/19 03/23/19 Rx aspirin 81 mg tablet 81 mg PO DAILY tab 03/18/19 03/23/19 History coenzyme Q10 100 mg capsule 200 mg PO DAILY cap 03/18/19 03/23/19 History latanoprost 0.005 % eye drops 1 drops OPB QPM ml 03/18/19 03/23/19 History levothyroxine 75 mcg tablet 75 mcg PO DAILY #90 tab 03/18/19 03/23/19 Rx losartan 50 mg tablet 50 mg PO DAILY #90 tab 03/18/19 03/23/19 History mometasone 50 mcg/actuation nasal 2 sprays INTRANASAL DAILY PRN #1 gm 03/18/19 03/23/19 History spray nicotine (polacrilex) 2 mg buccal 2 mg PO Q1H PRN ea 03/18/19 03/23/19 History lozenge nitroglycerin 0.4 mg sublingual 0.4 mg SL Q5M PRN #25 tab 03/18/19 03/23/19 History tablet ranitidine 150 mg tablet 150 mg PO BID tab 03/18/19 03/23/19 History Patient History Medical History H/O: hysterectomy partial Surgical History H/O colonoscopy 10/25/08 repeat in 10 yrs H/O esophagogastroduodenoscopy 03/10/15 /[facility] normal bx 11/04/08 12/04/08 EUS lipoma 10/04/11 bx from esophagus shower mild inflammation most consistent with GERD H/O hand surgery right hand giant cell tumor removed 1996 History of AAA (abdominal aortic aneurysm) repair endograft repair 2008 Dr. Trujillo AAA repair with [place] endograft S/P cataract surgery S/P excision of lipoma excision of lipoma left posterior neck Dr. Cabello 11/02/[address] Simon 1997 second one from back 1998 S/P rotator cuff repair [address] Mcdonald Family History Father Anxiety Coronary heart disease Heart disease Myocardial infarction Sister Anxiety Alcohol abuse Hypertension Cancer Brother Hx of CABG Coronary arteriosclerosis Heart disease Hearing loss Hypertension Lymphoma Mother Hearing loss Gallbladder disease Hypertension Social History Preferred Language: Divehi Communication Ability: Effective Call Center Support Consultant Required: No Beliefs That Will Affect Care: None marital status: Current Living Situation: Spouse current occupational status: retired Other Information That Helps Us Care for You: No Feels Safe at Home: Yes Safety Concerns: Feels Safe At This Time Smoking Status: Former smoker Do You Dip or Chew Tobacco: No ; Smoking End Date: 2009 ; Second Hand Exposure: No ; Tobacco Cessation Education Requested by Patient: No Hx Alcohol Use: No Hx Substance Use: No Childhood Exposure to Second-Hand Smoke: No Dental Care, Regularly: Yes Physical Activity Frequency: 1-2 Times per Week Physical Exam Physical Exam: In general this is a well-developed well-nourished white female in no acute distress. HEENT exam is negative. Neck is supple with full carotid upstrokes. There are no carotid bruits. Jugular venous pressure is flat at 90. There is no thyromegaly. Cardiovascular exam reveals a regular rhythm with a normal S1 and S2. No S3, S4, or murmurs are noted. Lungs are clear without rales, rhonchi, or wheezes. Abdomen is soft and nontender without bruits. Extremities reveal intact radial artery and posterior tibial pulses bilaterally. There is no peripheral edema. Results & Data Vital Signs (Past 12 Hours) Vital Signs Temp Pulse Pulse Resp BP Pulse Ox 03/24/19 15:05 36.8 C 51 L 16 123/71 95 03/24/19 09:07 45 L Laboratory Results CBC notes hemoglobin 13.5, hematocrit 40.5, white count 4.8, and platelet count [id number]. Electrolytes note a sodium of 142, potassium 4.4, chloride 109, bicarb 32, BUN 18, creatinine 1.04, glucose of 100. Three troponin I levels were undetectable at less than 0.015. TSH is normal at 2.34. LDL cholesterol 60 wit h an HDL low at 34. Diagnostic Findings EKG notes sinus bradycardia at 50 beats per minute. There are frequent PACs and old inferior myocardial infarction pattern. shelter monitor notes a heart rate as low as 35 beats per minute during sleep. Chest x-ray shows cardiomegaly but no acute disease. PG Care Time/CCT Total # of Minutes Spent Total Time Spent with Patient: Total time spent is greater than 50% in coordination of care (as documented) at patient's floor/unit and/or counseling patient:
[2019-03-24] MEDS: ENOXAPARIN INJ 40 MG/0.4 ML SYR SQ SCH (16:27)
--- NOTE | 2019-03-24 20:58 | Hospitalist Progress Note ---
Date of Service March 24, 2019 Assessment & Plan (1) Atypical chest pain: Some of her symptoms are very similar to her symptoms she had with her acute [place] in 2009. Despite the frequency of the symptoms over the last 24 hours her troponins have remained negative, however. Following my visit with her today I rechecked another troponin because of her late afternoon chest symptoms - again the troponin was negative. EKG today with inferior ST changes but these are chronic. Echo with inferior wall akinesis from her prior [place] but otherwise no new wall motion abnormalities. To her knowledge she has not had a stress test in 7-8 years. Will continue to observe. Cont asa, statin. Add PPI in the event her symptoms are GI in origin. Appreciate Dr Blum's consultation. Does patient need stress test? If so - nuclear stress test? Doubt biliary tract disease. Does have h/o AAA repair - could consider CTA chest/abd/pelvis to r/o recurrent aneurysm, dissection, etc. (2) CAD (coronary artery disease): cath in 2009 with occluded RCA and 50% LAD lesion no significant circumflex disease initial EKG yesterday with V5/V6 ST flattening those changes have resolved defer need for stress testing or other cardiac testing to cardiology see "chest pain" above (3) Bradycardia: she does have significantly low HRs at times (even high 30s) but appears to have appropriate response to exercise. HRs promptly went into the 70s/80s with walking today. defer need for additional work-up, EP evaluation, etc to cardiology. uncertain if this could be contributing to her symptoms but less likely. (4) Hypertension: Stable/controlled (5) Hyperlipidemia: Continue pravastatin 20 mg nightly, ezetimibe 10 mg p.o. daily LDL stable but trigs high consider dedicated triglyceride lowering agent (6) Abdominal aneurysm: s/p repair in the past could consider CTA dissection protocol if symptoms recur/persist (7) Hypothyroidism: TSH wnl Continue levothyroxine 75 MCG (8) Nicotine dependence: Continue nicotine 2 mg buccal lozenges prn (9) UTI (urinary tract infection): no symptoms of UTI u/a largely unremarkable d/c cipro (10) Gastrointestinal complaints: see discussion above in "atypical chest pain" change H2 gabrielle to PPI (11) DVT prophylaxis: lovenox observe again overnight Subjective patient reports having had dyspnea on Monday night which self-resolved. then, on Monday AM, had 30-60 minute episode of chest pain. was diaphoretic with the chest pain on Monday am. she thought Monday's symptoms were heartburn and thus took zantac (didn't help) and maalox (also didn't help). hasn't had GERD in a long time. many of her symptoms reminded her of when she had her [place] in 2009. today had a similar but not as severe episode of chest discomfort about 4pm. lasted 30 minutes or so. took maalox with resolution. she walked several times today in hallway and did NOT have chest pain or dyspnea. during my visit I had her walk in the hallway and her HR responded appropriately into the 70s and low 80s. no recent travel no recent sick contacts Review of Systems Constitutional: no fever, no chills and no anorexia Respiratory: no cough Cardiovascular: no orthopnea, no paroxysmal nocturnal dyspnea and no palpitations Gastrointestinal: no abdominal pain, no nausea and no vomiting Physical Exam Constitutional: well developed and well nourished; no acute distress ENMT: external ear and nose normal, oropharynx normal Respiratory: normal respiratory effort, lungs clear to auscultation Cardiovascular: Rate/Rhythm: regular rhythm and + bradycardic Heart Sounds: normal S1 and normal S2; no murmur Vessels: posterior tibial pulses present and dorsalis pedis pulses present; no JVD Extremities: no edema Chest (Breasts): Additional Comments: no reproducible chest wall pain to palpation Gastrointestinal (Abdomen): normal bowel sounds, soft, nontender, no hepatosplenomegaly Psychiatric: A+Ox3, euthymic affect Results & Data Vital Signs (Past 12 Hours) Vital Signs Temp Pulse Pulse Resp BP BP Pulse Ox 03/24/19 19:45 36.8 C 44 L 20 146/73 H 95 03/24/19 17:54 53 L 03/24/19 15:05 36.8 C 51 L 16 123/71 95 03/24/19 09:07 45 L Laboratory Results Laboratory Results - last 24 hr 03/23/19 03/24/19 03/24/19 21:54 03:36 03:36 WBC 4.84 RBC 4.55 Hgb 13.5 Hct 40.5 MCV 89.0 MCH 29.7 MCHC 33.3 RDW Std Deviation 42.8 RDW Coeff of Kriss 13.3 Plt Count 178 MPV 10.5 H Immature Gran % (Auto) 0.2 Neut % (Auto) 53.3 Lymph % (Auto) 33.5 Lane % (Auto) 9.1 Eos % (Auto) 3.3 Baso % (Auto) 0.6 Immature Gran # (Auto) 0.01 Neut # (Auto) 2.58 Lymph # (Auto) 1.62 Lane # (Auto) 0.44 Eos # (Auto) 0.16 Baso # (Auto) 0.03 Sodium 142 Potassium 4.4 Chloride 109 H Carbon Dioxide 32 Anion Gap 1.0 L BUN 18 Creatinine 1.04 Est Cr Clr Drug Dosing 46.8 Est GFR ( Amer) 63.0 Est GFR (Non-Af Amer) 54.4 BUN/Creatinine Ratio 17.4 Glucose 100 H Estimat Average Glucose Hemoglobin A1c Calcium 8.7 Total Bilirubin 0.4 AST 13 L ALT 20 Alkaline Phosphatase 67 Troponin I < 0.015 < 0.015 Total Protein 6.4 Albumin 3.3 L Globulin 3.1 Albumin/Globulin Ratio 1.1 Triglycerides 255 H Cholesterol 145 LDL Cholesterol, Calc 60 VLDL Cholesterol, Calc 51 HDL Cholesterol 34 Cholesterol/HDL Ratio 4 03/24/19 03/24/19 03:36 19:16 WBC RBC Hgb Hct MCV MCH MCHC RDW Std Deviation RDW Coeff of Kriss Plt Count MPV Immature Gran % (Auto) Neut % (Auto) Lymph % (Auto) Lane % (Auto) Eos % (Auto) Baso % (Auto) Immature Gran # (Auto) Neut # (Auto) Lymph # (Auto) Lane # (Auto) Eos # (Auto) Baso # (Auto) Sodium Potassium Chloride Carbon Dioxide Anion Gap BUN Creatinine Est Cr Clr Drug Dosing Est GFR ( Amer) Est GFR (Non-Af Amer) BUN/Creatinine Ratio Glucose Estimat Average Glucose Pending Hemoglobin A1c Pending Calcium Total Bilirubin AST ALT Alkaline Phosphatase Troponin I < 0.015 Total Protein Albumin Globulin Albumin/Globulin Ratio Triglycerides Cholesterol LDL Cholesterol, Calc VLDL Cholesterol, Calc HDL Cholesterol Cholesterol/HDL Ratio PG Care Time/CCT Total # of Minutes Spent Total Time Spent with Patient: Total time spent is greater than 50% in coordination of care (as documented) at patient's floor/unit and/or counseling patient: (1) Hypertension Hypertension type: essential hypertension Qualified Code(s): I10 - Essential (primary) hypertension (2) Hyperlipidemia Hyperlipidemia type: mixed hyperlipidemia Qualified Code(s): E78.2 - Mixed hyperlipidemia (3) Hypothyroidism Hypothyroidism type: acquired Qualified Code(s): E03.9 - Hypothyroidism, unspecified (4) Nicotine dependence Nicotine product type: other Substance use status: other nicotine-induced disorder Qualified Code(s): F17.298 - Nicotine dependence, other tobacco product, with other nicotine-induced disorders (5) UTI (urinary tract infection) Urinary tract infection type: site unspecified Hematuria presence: without hematuria Qualified Code(s): N39.0 - Urinary tract infection, site not specified (6) CAD (coronary artery disease) Coronary Disease-Associated Artery/Lesion type: [place] artery [place] vs. transplanted heart: [place] heart Associated angina: angina presence unspecified Qualified Code(s): I25.10 - Atherosclerotic heart disease of [place] coronary artery without angina pectoris
[2019-03-24] MEDS ORDERED: Nursing to Pharmacy Communication ONE (21:22)
[2019-03-24] MEDS: PRAVASTATIN SOD 20 MG TAB PO SCH (21:26)
[2019-03-24] MEDS: LATANOPROST 0.005% OP SOLN 2.5 ML BTL OPB SCH (21:26)
[2019-03-24] MEDS: ALPRAZolam 0.5 MG TABLET PO PRN (21:27)
[2019-03-24] MEDS: PANTOprazole 40 MG TAB PO SCH (21:36)
[2019-03-25] MEDS: LEVOTHYROXINE SODIUM 75 MCG TABLET PO SCH (06:28)
[2019-03-25 06:40] LABS: Basophils # (auto) 0.05 K/uL (0-0.2); Eosinophils # (auto) 0.16 K/uL (0-0.5); Eosinophils % (auto) 3.1 %; Hematocrit (blood only) 42.4 % (37-47); Hemoglobin 14.3 g/dL (12.0-16.0); Immature Granulocytes # (auto) 0.01 K/uL (0.00-0.02); Immature Granulocytes % (auto) 0.2 %; Lymphocytes # (auto) 1.35 K/uL (1.2-3.4); Lymphocytes % (auto) 25.9 %; Mean Corpuscular Hemoglobin 30.2 pg (25-34); Mean Corpuscular Hgb Conc 33.7 g/dL (32-36); Mean Corpuscular Volume 89.5 fL (80-100); Mean Platelet Volume 10.5 fL (7.4-10.4); Monocytes # (auto) 0.55 K/uL (0.11-0.59); Monocytes % (auto) 10.6 %; Neutrophils # (auto) 3.09 K/uL (1.4-6.5); Neutrophils % (auto) 59.2 %; Platelet Count 174 K/uL (130-400); RDW Coefficient of Variation 13.1 % (11.5-14.5); RDW Standard Deviation 42.7 fL (36.4-46.3); Red Blood Count 4.74 M/uL (4.2-5.4); White Blood Count 5.21 K/uL (4.8-10.8)
[2019-03-25 06:49] LABS: Estimated Average Glucose 105 mg/dl; Hemoglobin A1C 5.3 % (4.5-5.6)
[2019-03-25 07:17] LABS: Potassium 4.5 mmol/L (3.5-5.1)
[2019-03-25 07:18] LABS: Albumin Level 3.5 gm/dl (3.4-5.0); BUN Creatinine Ratio 19.7 (10-20); Calcium 8.8 mg/dl (8.5-10.1); Creatinine Clr Calc Pharmacy 39.4 ml/min; Est GFR (Non-African American) 44.8
[2019-03-25 07:20] LABS: Bilirubin,Total 0.7 mg/dl (0.2-1); Globulin 3.5 gm/dl (2.5-4.0)
[2019-03-25] MEDS: LOSARTAN POTASSIUM 50 MG TAB PO SCH (07:57)
[2019-03-25] MEDS: PANTOprazole 40 MG TAB PO SCH (07:58)
[2019-03-25] MEDS: ESCITALOPRAM OXALATE 10 MG TAB PO SCH (07:58)
[2019-03-25] MEDS: EZETIMIBE 10 MG TABLET PO SCH (07:58)
[2019-03-25] MEDS: ASPIRIN 81 MG CHEW PO SCH (08:03)
[2019-03-25] MEDS: BRIMONIDINE TARTRATE 0.2% 5ML OP SCH (08:03)
--- NOTE | 2019-03-25 13:40 | Cardiology Progress Note ---
Date of Service March 25, 2019 Assessment & Plan (1) Chest pain: The patient's description of chest discomfort is atypical for classic angina pectoris. Fortunately, her troponin I levels are undetectable, and she has no acute EKG changes. No need for stress testing at this time. 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 She is found have a totally obstructed right coronary with good distal collateral flow. Continue medical management. (3) Bradycardia: The patient demonstrates sinus bradycardia, however, this has been as ymptomatic. Her heart rate increases appropriately with physical activity. (4) Hypertension: Adequate control on current medical regimen. (5) Hyperlipidemia: Continue pravastatin. Subjective The patient is resting comfortably in bed without complaints of dyspnea. Did experience some minor chest discomfort last evening, however, this resolved with administration of Maalox. She was able a ambulate in the hallway without exertional chest pain. Physical Exam Physical Exam: In general this is a well-developed well-nourished white female in no acute distress. HEENT exam is negative. Neck is supple with full carotid upstrokes. There are no carotid bruits. Jugular venous pressure is flat at 90. There is no thyromegaly. Cardiovascular exam reveals a regular rhythm with a normal S1 and S2. No S3, S4, or murmurs are noted. Lungs are clear without rales, rhonchi, or wheezes. Abdomen is soft and nontender without bruits. Extremities reveal intact radial artery and posterior tibial pulses bilaterally. There is no peripheral edema. Results & Data Vital Signs (Past 12 Hours) Vital Signs Temp Pulse Pulse Pulse Resp BP BP 03/25/19 10:47 36.4 C L 47 L 53 L 18 118/63 123/71 03/25/19 10:40 55 L 03/25/19 07:25 36.4 C L 47 L 18 118/63 03/25/19 03:56 36.8 C 55 L 94 H 133/67 Pulse Ox 03/25/19 10:47 92 03/25/19 10:40 03/25/19 07:25 92 03/25/19 03:56 94 Diagnostic Findings senior tax manager noted sinus bradycardia as low as 35 beats per minute when sleeping. However, heart rate increases into the 70s with ambulation. PG Care Time/CCT Total # of Minutes Spent Total Time Spent with Patient: Total time spent is greater than 50% in co ordination of care (as documented) at patient's floor/unit and/or counseling patient: (1) CAD (coronary artery disease) Coronary Disease-Associated Artery/Lesion type: [place] artery [place] vs. transplanted heart: [place] heart Associated angina: angina presence unspecified Qualified Code(s): I25.10 - Atherosclerotic heart disease of [place] coronary artery without angina pectoris (2) Hypertension Hypertension type: essential hypertension Qualified Code(s): I10 - Essential (primary) hypertension (3) Hyperlipidemia Hyperlipidemia type: mixed hyperlipidemia Qualified Code(s): E78.2 - Mixed hyperlipidemia
[2019-03-25] MEDS ORDERED: PRAVASTATIN SOD 20 MG TAB PO SCH (21:00)
--- NOTE | 2019-03-31 23:59 | Discharge Summary ---
Date of Service March 25, 2019 Admission HPI Per Admitting Provider Patient is a 68 years old female with past medical history of hypertension, hyperlipidemia, clipped abdominal aneurysm, sinus bradycardia and syncope who came to the emergency room with complaint of a chest pain that started this morning and lasted more than 30 minutes. Patient tried to relieve the pain with food but did not help, nitroglycerin helps a little bit, but pain continued to be all over patient chest mostly in epigastric area and on occasion was spreading to her both arms and jaw. In the ER patient was also given nitroglycerin. Patient denies fever chills abdominal pain shortness of breath hematuria hemoptysis or melena, syncope or near syncope. Patient reports burning with urination. Labs are reviewed: White blood cell 5.4 hemoglobin 13.6, hematocrit 40.1 platelets 182, sodium 140 potassium 4.1, chloride 109, carbon dioxide 25, BUN 15 creatinine 0.91 GFR 63.9, AST 17 ALT 22 random glucose 128, albumin 3.5, troponin 0 0.015 lipase 171 TSH pending, lipid panel pending, BNP pending. Urine trace hemoglobin, leukocyte esterase small, 1-5 white blood cells; chest x-rays: Mild cardiomegaly, atherosclerosis of the aortic arch, cardiac silhouette mildly enlarged, minimal bibasilar opacities, no pleural effusion or pneumothorax. EKG: Significant for sinus bradycardia with premature atrial complexes ventricular rate of 49 bpm,QRS 96; decision was made to admit patient to the PCU telemetry on observation for symptomatic bradycardia and to rule out coronary artery syndrome Principal Diagnosis Atypical chest pain Discharge Exam Constitutional WD/WN, vitals as above Eyes PERRL, conjunctivae normal, anicteric sclerae ENMT external ear and nose normal, oropharynx normal Neck trachea midline, no thyromegaly Respiratory normal respiratory effort, lungs clear to auscultation Cardiovascular RRR, no murmur, no edema Gastrointestinal (Abdomen) normal bowel sounds, soft, nontender, no hepatosplenomegaly Musculoskeletal no cyanosis or clubbing, extremities motor strength 5/5 Skin no rashes, warm and dry Neurologic patellar DTR's 2+ bilat, sensation intact and PERRL, EOMI, accommodation nl, no face palsy, no dysarthria Psychiatric A+Ox3, euthymic affect Lymphatic no cervical or axillary lymphadenopathy Discharge Data Allergies Allergy/AdvReac Type Severity Reaction Status Date / Time naproxen Allergy Severe SWELLING Verified 03/23/19 13:44 IN LIPS AND EYES Penicillins Allergy Severe FACIAL Verified 03/23/19 13:44 EDEMA clindamycin Allergy Intermediate hives Verified 03/23/19 13:44 Sulfa (Sulfonamide Allergy Intermediate HIVES Verified 03/23/19 13:44 Antibiotics) quinine Allergy Unknown HIVES Verified 03/23/19 13:44 nickel Allergy Rash Verified 03/23/19 15:36 lisinopril AdvReac Cough Verified 03/24/19 14:09 Dmnouqa-Lum-Olr Reductase AdvReac Muscle Pain Verified 03/24/19 14:09 Inhibitor Consultations 03/23/19 14:11 ED Decision to Admit Stat 03/23/19 16:04 Consult Cardiology Routine Hospital Course (1) Atypical chest pain: Some of her symptoms are very similar to her symptoms she had with her acute CT in 2009. Despite the frequency of the symptoms over the last 24 hours troponin remained negative EKG 03/[address] changes but these are chronic. Echo with inferior wall akinesis from her prior CT but otherwise no new wall motion abnormalities. To her knowledge she has not had a stress test in 7-8 years. Cont asa, statin. Add PPI in the event her symptoms are GI in origin. Appreciate Dr Blum's consultation. can have a stress test as outpatient if necessary, okay for discharge to home (2) CAD (coronary artery disease): cath in 2009 with occluded RCA and 50% LAD lesion no significant circumflex disease initial EKG 03/23 with V5/V6 ST flattening those changes resolved defer need for stress testing or other cardiac testing to cardiology can be done outpatient (3) Bradycardia: she does have significantly low HRs at times (even high 30s) but appears to have appropriate response to exercise. HRs promptly went into the 70s/80s with walking today. (4) Hypertension: Stable/controlled (5) Hyperlipidemia: Continue pravastatin 20 mg nightly, ezetimibe 10 mg p.o. daily LDL stable but trigs high (6) Abdominal aneurysm: s/p repair in the past (7) Hypothyroidism: TSH wnl Continue levothyroxine 75 MCG (8) Nicotine dependence: Continue nicotine 2 mg buccal lozenges prn (9) UTI (urinary tract infection): no symptoms of UTI u/a largely unremarkable d/c cipro (10) Gastrointestinal complaints: see discussion above in "atypical chest pain" change H2 gabrielle to PPI (11) DVT prophylaxis: lovenox Total Time Total Time Spent Total Time Spent (In Minutes): 20 minutes Total Time Includes: Examination of the Patient, Discharge Planning, Medication Reconciliation and Communication With Other Providers (Dr. Blum) Discharge Plan Discharge Items Patient Disposition: Home - Self-Care Reason For Visit: CHEST PAIN,BRADYCARDIA Discharge Diagnosis: Chest pain, likely heartburn Condition: Good Discharge Goals: Decrease discomfort and Improve function Activity: Resume your previous activity Non-emergency contact: Primary Care Provider Call non-emergency contact if: you have any medication questions, your symptoms worsen, your pain is not controlled and you have a fever Follow-up/Referrals: Christiano Teresa MD [Primary Care Provider] - Diet: Heart Healthy Addtl Provider Instructions: Medications: - PRILOSEC: recommend taking daily for the next two weeks to help treat reflux, can use Tums or Maalox as needed Chest pain, atypical most likely due to reflux troponin (heart enzyme) negative for three sets, EKG without obvious ischemic changes echo with prior wall motion abnormalities, nothing new Dr. Blum recommends follow up with Dr. Tomlin, could consider outpatient nuclear stress test but no need currently GERD: likely due to pizza and fresh onions use Prilosec daily for next two weeks to help reduce acid production use Tums or Maalox as needed avoid foods that you know cause heartburn (caffeine, spicy, peppermint, onions) follow up with Dr. Teresa FOLLOW UP - call for appt with Dr. Teresa in one week Prescriptions: Continued trazodone 50 mg tablet 50 mg PO DAILY Qty: 90 RF: 3 ezetimibe 10 mg tablet 10 mg PO DAILY Qty: 90 RF: 3 alprazolam 0.5 mg tablet 0.5 mg PO BID PRN (Reason: anxiety) Qty: 60 RF: 0 pravastatin 20 mg tablet 20 mg PO .COMPLEX Qty: 90 RF: 3 escitalopram oxalate 10 mg tablet 10 mg PO DAILY Qty: 30 RF: 3 levothyroxine 75 mcg tablet 75 mcg PO DAILY Qty: 90 RF: 1 aspirin 81 mg tablet 81 mg PO DAILY RF: 0 coenzyme Q10 [CoQ-10] 100 mg capsule 200 mg PO DAILY RF: 0 latanoprost 0.005 % drops 1 drops OPB QPM RF: 0 losartan 50 mg tablet 50 mg PO DAILY Qty: 90 RF: 0 mometasone 50 mcg/actuation spray,non-aerosol 2 sprays intranasal DAILY PRN (Reason: Allergic Symptoms) Qty: 1 RF: 0 nicotine (polacrilex) 2 mg lozenge 2 mg PO Q1H PRN (Reason: nicotine cravings) RF: 0 nitroglycerin 0.4 mg tablet, sublingual 0.4 mg SL Q5M PRN (Reason: chest pain) Qty: 25 RF: 0 ranitidine HCl 150 mg tablet 150 mg PO BID RF: 0 Stand-Alone Forms: Call Back Authorization, [facility]/Other Patient Handouts: Heart Attack Warning Signs Discharge Orders: Discharge Order (Routine); Ordered 03/25/19 Ordered By: Edd Peters Admission Data Admit Date/Time: 03/23/19 15:08 Attending Provider: Edd Peters Admit Provider: Corby Chairez Primary Care Provider: Christiano Teresa Other Providers: Corby Chairez ; Ronald Blum Service: Telemetry Other Interventions: Discharge Summary Assessment (RN) Last Done: 03/25/19 10:47 DC Date/Time DO NOT enter until pt leaves facility: 03/25/19 11:34
== END 2019-03-25 11:34 | disposition home or self-care (01) ==
LOC: 2S 12:58 → ED 12:58 → SUATTDRO 15:08 → 2S 15:28